=== PATIENT | female | born 1955 | race Caucasian/White ===

== ENCOUNTER 2022-02-16 17:28 | Emergency (ER) | payer BC | END 2022-02-16 18:45 | disposition home or self-care (01) | LOC: LL.ED 17:28 | DX: R19.7 Diarrhea, unspecified (principal); Z88.6 Allergy status to analgesic agent; Z79.82 Long term (current) use of aspirin; Z79.899 Other long term (current) drug therapy | CPT/HCPCS: 99283; 99284 ==

== ENCOUNTER 2023-08-11 17:23 | Emergency (ER) | payer MEDICARE ==
[2023-08-11] MEDS ORDERED: Naloxone 0.4 MG/ML SDV IVPUSH PRN (18:05)
[2023-08-11] MEDS: LORazepam 0.5 MG Tab PO ONE (18:33)
[2023-08-11 18:36] LABS: BASOPHILS ABSOLUTE AUTO 0.02 K/uL (0.00-0.20); BASOPHILS PERCENT AUTO 0.1 % (0.0-2.0); EOSINOPHILS ABSOLUTE AUTO 0.01 K/uL (0.00-0.50); EOSINOPHILS PERCENT AUTO 0.1 % (0.0-5.0); HEMATOCRIT 38.3 % (34.0-46.0); HEMOGLOBIN 12.7 g/dL (11.7-15.5); LYMPHOCYTES ABSOLUTE AUTO 1.07 K/uL (0.50-3.50); LYMPHOCYTES PERCENT AUTO 6.6 % (10.0-50.0); MEAN CORPUSCULAR HEMOGLOBIN 28.5 pg (28.2-33.3); MEAN CORPUSCULAR HGB CONC 33.2 g/dL (31.7-36.0); MEAN CORPUSCULAR VOLUME 86.1 fL (84.0-98.0); MONOCYTES PERCENT AUTO 5.5 % (2.0-14.0); NEUTROPHILS ABSOLUTE AUTO 14.32 K/uL (1.40-7.00); NEUTROPHILS PERCENT AUTO 87.7 % (45.0-80.0); PLATELET COUNT,PLT 342 K/uL (150-350); RED BLOOD CELL COUNT 4.45 M/uL (3.77-5.09); RED CELL DISTRIBUTION WIDTH 13.8 % (11.2-14.1); WHITE BLOOD CELL COUNT,WBC 16.3 K/uL (4.0-10.2)
[2023-08-11] MEDS: Ondansetron 4 MG/2 ML SDV IVPUSH ONE (18:37)
[2023-08-11] MEDS: diphenhydrAMINE 50 MG/ML SDV IVPUSH ONE (18:37)
[2023-08-11] MEDS: HYDROmorphone 0.5 MG/0.5 ML Syringe IVPUSH ONE ×2 (18:39→19:30)
[2023-08-11] MEDS: predniSONE 20 MG Tab PO ONE (18:50)
[2023-08-11 18:57] LABS: ALBUMIN 3.2 g/dL (3.4-5.0); BILIRUBIN TOTAL 0.3 mg/dL (0.2-1.0); C-REACTIVE PROTEIN 0.14 mg/dL (0.05-0.30); CALCIUM 8.6 mg/dL (8.5-10.1); CARBON DIOXIDE,CO2 24.1 mmol/L (21.0-32.0); CREATININE 0.81 mg/dL (0.51-1.17); POTASSIUM,K 4.6 mmol/L (3.5-5.1)
[2023-08-11 18:59] LABS: ANION GAP 14.5 meq/L (7-15)
[2023-08-11] MEDS: Sodium Chloride 0.9% 1,000 ML IV ONE (19:17)
[2023-08-11] MEDS: Sodium Chloride 0.9% 10 ML Syringe FLUSH PRN (19:31)
[2023-08-11] MEDS: Take Home: traMADol 50 MG, 4 Tab Pack PO ONE (20:01)
== END 2023-08-11 20:45 | disposition home or self-care (01) ==
LOC: LL.ED 17:23
DX: R52 Pain, unspecified (principal); Z88.5 Allergy status to narcotic agent; Z79.899 Other long term (current) drug therapy
CPT/HCPCS: 36415; 80053; 82550; 83605; 85025; 86140; 96361; 96374; 96375; 96376; 99283-25; 99284; A9270-GY; J1170; J1200; J1642; J2405; J3490; J7030; J7512

== ENCOUNTER 2023-08-14 18:01 | Emergency (ER) | payer MEDICARE ==
[2023-08-14 18:08] VITALS: BP 139/60; PULSE 77
== END 2023-08-14 19:18 ==
LOC: LL.ED 18:01
DX: G89.29 Other chronic pain (principal); F41.9 Anxiety disorder, unspecified; Z88.5 Allergy status to narcotic agent; Z79.899 Other long term (current) drug therapy
CPT/HCPCS: 99283; 99284

== ENCOUNTER 2023-08-16 11:06 | Emergency (ER) | payer MEDICARE ==
[2023-08-16] MEDS: Diltiazem 25 MG/5 ML SDV IVPUSH ONE ×2 (11:30→12:13)
[2023-08-16] MEDS: Sodium Chloride 0.9% 10 ML Syringe FLUSH PRN (11:40)
[2023-08-16 12:21] LABS: PRO B-TYPE NATRIUR PEPT,BNPPRO 268 pg/mL (0-125)
[2023-08-16] MEDS: Sodium Chloride 0.9% 1,000 ML IV ONE (12:33)
[2023-08-16] MEDS: Metoprolol Succinate 25 MG Tab.ER PO ONE (13:13)
== END 2023-08-16 14:15 ==
LOC: LL.ED 11:06
DX: I48.91 Unspecified atrial fibrillation (principal); Z79.01 Long term (current) use of anticoagulants; Z79.899 Other long term (current) drug therapy; Z88.5 Allergy status to narcotic agent
CPT/HCPCS: 36415; 83880; 84484; 93005; 93010; 96361; 96374; 96376; 99284; 99285-25; A9270-GY; J3490; J7030